=== PATIENT | male | born 1980 | race Two or more races ===

== ENCOUNTER 2024-03-07 08:21 | Outpatient (AMB) | payer OTHER, SELFPAY ==
--- NOTE | 2024-03-07 08:54 | AM.OFFWIN_ITS ---
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 Patient states 3 weeks ago he was pulling heavy items in a wheelbarrow and felt the pain in his right wrist thereafter. Pain is worse with activity. Patient has not taken any [id number] medication for treatment of his discomfort but notes pain in his right wrist with activity and when picking up items. [facility] Social History Patient Tobacco Use Status: Never used Tobacco Review of Systems Const All systems reviewed & are unremarkable except as noted in HPI and below Eyes Reports no additional complaints ENT Reports no additional complaints Card Reports no additional complaints Resp Reports no additional complaints GI Reports no additional complaints Reports no additional complaints Musc Details: Atraumatic right wrist pain Reports no additional complaints Skin/Breast Reports system reviewed and no additional complaints, except as documented Neuro Reports no additional complaints Psych Reports no additional complaints Endo Reports no additional complaints Gurmeet/Lymph Reports no additional complaints Physical Exam Vital Signs: Last Vital Signs Temp 97.7 F 03/07/24 08:56 Pulse 74 03/07/24 08:56 BP 130/70 03/07/24 08:56 Pulse Ox 98 03/07/24 08:56 Oxygen Delivery Method Room Air 03/07/24 08:56 BMI result Body Mass Index 30.6 Const General: cooperative, healthy appearing, comfortable, no acute distress, well developed, alert and awake Nutritional Appearance: average body habitus Orientation/consciousness: patient oriented x3 Limitations: no limitations Skin General skin exam: no rashes or lesions noted Trauma: no lacerations or abrasions Wounds: no wounds Neuro General: patient oriented x3 Extrem Other: Pain to palpation right lateral epicondyle; no pain medial epicondyle, passive ROM right wrist intact, minimal edema overlying dorsal surface of the right radius, passive ROM all digits of the right hand intact. Right upper extremity: normal capillary refill, no joint enlargement and wrist (pain in R. wrist with ulnar deviation right hand, no pain flex/extension) Psych Appearance: grossly normal Mental Status: mental status grossly normal Insight: Good insight present (Psych) Judgement: Good judgement present (Psych) Assessment & Plan Assessment & Plan (1) Right lateral epicondylitis: Comment: No acute injury; imaging deferred today. Code(s): M77.11 - Lateral epicondylitis, right elbow Plan: Counterforce elbow strap RUE and Naproxyn BID x 10 days. Patient to follow up with primary care provider in 7-10 days if pain is not improving. Medications: New arm brace (Elbow Strap) As directed Right upper extremity 1 ea 0RF naproxen (Naprosyn) 500 mg PO BID 20 tabs 0RF Coding Level of Care Code New Pt Level 3 (39653) Diagnoses Right lateral epicondylitis M77.11 Time Spent (min) 20
[2024-03-07 08:56] VITALS: BP 130/70; PULSE 74; TEMP 36.5; O2SAT 98; BMI 30.6
== END 2024-03-07 09:56 | disposition home or self-care (01) ==
PROVIDERS: Visit Provider Physician Assistant
DX: M77.11 Lateral epicondylitis, right elbow (principal)
CPT/HCPCS: 99203

== ENCOUNTER 2024-06-27 14:07 | Outpatient (AMB) | payer OTHER, SELFPAY ==
--- NOTE | 2024-06-27 14:10 | MHC.OFFWIV ---
Intake Vital Signs 06/27/24 14:12 Height 5 ft 9 in Weight 206 lb BMI 30.4 BP 118/80 Blood Pressure Location Rt brachial Position Sitting Pulse 70 Pulse Source Pulse Oximeter Pulse Oximetry (%) 98 Oxygen Delivery Method Room Air Intake Visit Reasons: EP Splinter in RT thumb Intake Note: Patient here for splinter on right thumb that happened about 1 week ago while cleaning the yard, states he took out the splinter but the area is now red, warm to touch and slight swelling. Patient Tobacco Use Status: Never used Tobacco Allergies No Known Allergies Allergy (Verified 06/27/24 14:13) Do you need a note to return to daycare/school/sports/work: No HPI HPI Comments History of Present Illness Details 43 y/o male patient who presents to the walk in clinic with c/o right thumb pain, warm, swelling and redness. He removed a splinter about 1 week ago, and now has an infection. Describes the pain as Throbbing. Denies fevers, chills, nausea or vomiting. [facility] Social History Patient Tobacco Use Status: Never used Tobacco Physical Exam Vital Signs: Last Vital Signs Pulse 70 06/27/24 14:12 BP 118/80 06/27/24 14:12 Pulse Ox 98 06/27/24 14:12 Oxygen Delivery Method Room Air 06/27/24 14:12 BMI result Body Mass Index 30.4 Const General: no acute distress Orientation/consciousness: patient oriented x3 Skin Other: Right Thumb swollen, tender, warm and Red. No drainage. General skin exam: erythema Neuro General: patient oriented x3, gait normal and moves all extremities Psych Speech and movement: Normal speech and movement present Assessment & Plan Assessment & Plan (1) Cellulitis of right thumb: Code(s): L03.011 - Cellulitis of right finger Plan: Will treat with Abx for seven days Soak thumb in warm water for 20 minutes, on/off to promote Drainage. Medications: New cephalexin 500 mg PO BID 7 days 14 caps 0RF L03.011 - Cellulitis of right finger Coding Level of Care Code Est Pt Level 3 (24095) Diagnoses Cellulitis of right thumb L03.011 Time Spent (min) 15
[2024-06-27 14:12] VITALS: BP 118/80; PULSE 70; O2SAT 98; BMI 30.4
== END 2024-06-27 14:37 | disposition home or self-care (01) ==
PROVIDERS: Visit Provider Nurse Practitioner Family
DX: L03.011 Cellulitis of right finger (principal)